=== PATIENT | female | born 1990 | race Caucasian/White ===

== ENCOUNTER 2025-02-19 17:05 | Emergency (ER) | payer BC ==
[~2025-02-19] VITALS: Ht 160 cm; Wt 56.7 kg
[2025-02-19 17:08] VITALS: BP 116/89; TEMP 36.8; O2SAT 100
[2025-02-19 17:12] VITALS: PULSE 118; RESP 20; O2SAT 95
[2025-02-19 17:48] LABS: BASOPHILS % 1.0 % (0.0-2.0); EOSINOPHILS % 0.6 % (0.0-5.0); HEMATOCRIT. 37.4 % (36.0-48.0); HEMOGLOBIN. 12.5 g/dL (12.0-16.0); LYMPHOCYTES % 33.4 % (20.0-50.0); MEAN PLATELET VOLUME 7.9 fl (7.4-10.4); MONOCYTES % 4.5 % (2.0-8.0); NEUTROPHILS % 60.5 % (40.0-76.0); PLATELET 142 x1000/uL (130-400); RED BLOOD CELL COUNT 4.31 mill/uL (4.2-5.4); RED CELL DISTRIBUTION WIDTH 16.6 % (11.6-14.6)
[2025-02-19 17:53] LABS: BG DEOXYHEMOGLOBIN 5.0 % (0.0-5.0)
[2025-02-19 18:02] LABS: CREATININE 0.6 mg/dL (0.6-1.0); UREA NITROGEN BLOOD 13 mg/dL (9-23)
[2025-02-19 18:03] LABS: HCG SCREEN NEGATIVE; PROTEIN TOTAL 6.8 g/dL (6.0-8.3)
[2025-02-19 18:04] LABS: ASPARTATE AMINOTRANSFERASE 50 IU/L (<34); BILIRUBIN DIRECT 0.1 mg/dL (<=3.0); BILIRUBIN TOTAL 0.5 mg/dL (0.1-1.0)
[2025-02-19 18:36] LABS: ETHANOL BLOOD 465 mg/dL (<10)
[2025-02-19 19:22] LABS: CLARITY URINE CLEAR (CLEAR); COLOR URINE YELLOW (YELLOW); GLUCOSE URINE NEGATIVE (NEGATIVE); KETONES URINE 2+ (NEGATIVE); LEUKOCYTE ESTERASE URINE TRACE (NEGATIVE); NITRITE URINE NEGATIVE (NEGATIVE); OCCULT BLOOD URINE 3+ (NEGATIVE); PH URINE 5.5 (4.5-8.0); PROTEIN URINE 1+ (NEGATIVE); SPECIFIC GRAVITY URINE 1.017 (1.005-1.030); UROBILINOGEN URINE 0.2 E.U./dL (0.2-1.0)
[2025-02-19 19:27] LABS: *AMPHETAMINES SCREEN URINE NEGATIVE (NEGATIVE); *BARBITURATES SCREEN URINE NEGATIVE (NEGATIVE); *BENZODIAZEPINES SCREEN URINE PRESUMPTIVE POSITIVE (NEGATIVE); *COCAINE SCREEN URINE NEGATIVE (NEGATIVE); CANNABINOID URINE SCREEN NEGATIVE (NEGATIVE); ECSTASY MDMA SCREEN URINE NEGATIVE (NEGATIVE); METHADONE URINE SCREEN NEGATIVE (NEGATIVE); OPIATES URINE SCREEN NEGATIVE (NEGATIVE); PHENCYCLIDINE URINE SCREEN NEGATIVE (NEGATIVE)
[2025-02-19 19:55] LABS: BACTERIA URINE 3+; RBC URINE 15-25 /hpf (0-2); SQUAMOUS EPITHELIAL CELL URINE 1+ /lpf (RARE/1+); WBC URINE 0-2 /hpf (0-2)
[2025-02-19] MEDS: LORAZEPAM 2MG/ML UD SYRINGE IV NR (20:47)
[2025-02-19] MEDS: SODIUM CHLORIDE 0.9% 1,000 ML IV ONE (20:48)
== END 2025-02-19 22:29 | disposition home or self-care (01) ==
LOC: ER 17:05 → EDBEDREQ 21:01 → EDBEDREQTM 21:01 → EDRESERV 21:37 → ENRESERV 21:37 → ER 22:29 → CMPBEDREQ 02-20 09:11
DX: F10.229 Alcohol dependence with intoxication, unspecified (principal); Z79.899 Other long term (current) drug therapy; Z87.820 Personal history of traumatic brain injury; Y90.9 Presence of alcohol in blood, level not specified
CPT/HCPCS: 80076; 80305; 80048; 81003; 80307; 80329; 80320; 84703; 83735; 85025; 36415; 82375; 82803; 93005; 96361; 96374; 99284; J2060; J7030; G0480